=== PATIENT | male | born 1945 | race Caucasian/White ===

== ENCOUNTER → 2016-06-17 | Outpatient (CLI) | payer MEDICARE, OTHER ==
[~2016-06-17] VITALS: Ht 177.8 cm; Wt 69.9 kg
[~2016-06-17] MED LIST: BYSTOLIC10 MG PO; CYCLOSPORINE M100 MG PO; CYCLOSPORINE100 MG PO; ENSURE LIQUID237 ML PO; FILGRASTIM INJ; HYDROCODON-ACE1 EAC6 PO; IMBRUVICA140 MG PO; LEVAQUIN750 MG PO; LORTAB 7.5-3251 EACH PO; MEGACE SUSP40 MG/M1 PO; MEGACE400 MG/10 PO; OXYCODONE HCL10 MG PO; PREDNISONE 10 M10 MG GT; PREDNISONE10 MG PO; PROVENTIL HFA 61 INH INH; TESSALON PERLE100 MG PO
[2016-06-17 08:44] LABS: HEMOGLOBIN 7.7 gm/dl (14.0-17.5)
== END ==
LOC: OPSV 08:00
PROVIDERS: Internal Medicine Hematology & Oncology
DX: C83.08 Small cell B-cell lymphoma, lymph nodes of multiple sites (principal); Z88.0 Allergy status to penicillin; Z88.6 Allergy status to analgesic agent; Z88.8 Allergy status to other drugs, medicaments and biological substances
CPT/HCPCS: 36415; 36430; 85014; 85018; 86850; 86900; 86901; 86920; 86922; 96374; J1940; J7050; P9016; Q0163

== ENCOUNTER → 2016-06-24 | Outpatient (CLI) | payer MEDICARE, OTHER ==
[2016-06-24 11:15] LABS: HEMOGLOBIN 9.6 gm/dl (14.0-17.5); RED BLOOD COUNT 2.74 M/UL (4.20-5.50)
[2016-06-24 11:24] LABS: WHITE BLOOD COUNT 82.1 K/UL (4.5-11.0)
== END ==
LOC: CT 10:00
PROVIDERS: Internal Medicine Infectious Disease
DX: B44.1 Other pulmonary aspergillosis (principal); J90 Pleural effusion, not elsewhere classified; E44.0 Moderate protein-calorie malnutrition; D63.8 Anemia in other chronic diseases classified elsewhere; D72.823 Leukemoid reaction; R06.02 Shortness of breath; Z99.81 Dependence on supplemental oxygen; Z92.25 Personal history of immunosuppression therapy; J98.4 Other disorders of lung
CPT/HCPCS: 36415; 71250; 80053; 85025; 86140

== ENCOUNTER → 2016-06-30 | Outpatient (CLI) | payer MEDICARE, OTHER ==
[2016-06-30 15:20] LABS: HEMOGLOBIN 8.3 gm/dl (14.0-17.5); RED BLOOD COUNT 2.42 M/UL (4.20-5.50)
[2016-06-30 15:36] LABS: WHITE BLOOD COUNT 152.6 K/UL (4.5-11.0)
== END ==
LOC: LAB 14:20
PROVIDERS: Internal Medicine Hematology & Oncology
DX: D64.9 Anemia, unspecified (principal); D60.9 Acquired pure red cell aplasia, unspecified; C83.08 Small cell B-cell lymphoma, lymph nodes of multiple sites; Z88.0 Allergy status to penicillin; Z88.8 Allergy status to other drugs, medicaments and biological substances
CPT/HCPCS: 36415; 85025

== ENCOUNTER → 2016-07-07 | Outpatient (CLI) | payer MEDICARE, OTHER ==
[2016-07-07 12:31] LABS: HEMOGLOBIN 7.7 gm/dl (14.0-17.5); RED BLOOD COUNT 2.11 M/UL (4.20-5.50)
[2016-07-07 13:30] LABS: WHITE BLOOD COUNT 117.4 K/UL (4.5-11.0)
== END ==
LOC: LAB 10:59
PROVIDERS: Internal Medicine Hematology & Oncology
DX: C83.08 Small cell B-cell lymphoma, lymph nodes of multiple sites (principal); D60.9 Acquired pure red cell aplasia, unspecified; D64.9 Anemia, unspecified
CPT/HCPCS: 36415; 85025

== ENCOUNTER → 2016-08-05 | Outpatient (CLI) | payer MEDICARE, OTHER ==
[2016-08-05 11:51] LABS: HEMOGLOBIN 8.6 gm/dl (14.0-17.5); RED BLOOD COUNT 2.41 M/UL (4.20-5.50)
[2016-08-05 12:07] LABS: WHITE BLOOD COUNT 63.6 K/UL (4.5-11.0)
== END ==
LOC: LAB 10:53
PROVIDERS: Internal Medicine Hematology & Oncology
DX: C83.08 Small cell B-cell lymphoma, lymph nodes of multiple sites (principal); D64.9 Anemia, unspecified; D60.9 Acquired pure red cell aplasia, unspecified; J90 Pleural effusion, not elsewhere classified; R91.8 Other nonspecific abnormal finding of lung field; J18.9 Pneumonia, unspecified organism
CPT/HCPCS: 36415; 71020; 85025

== ENCOUNTER → 2016-09-16 | Outpatient (CLI) | payer MEDICARE, OTHER ==
[2016-09-16 15:45] LABS: RED BLOOD COUNT 2.72 M/UL (4.20-5.50); WHITE BLOOD COUNT 21.9 K/UL (4.5-11.0)
== END ==
LOC: LAB 14:42
PROVIDERS: Internal Medicine Hematology & Oncology
DX: C83.08 Small cell B-cell lymphoma, lymph nodes of multiple sites (principal); D60.9 Acquired pure red cell aplasia, unspecified; D64.9 Anemia, unspecified
CPT/HCPCS: 36415; 85025

== ENCOUNTER 2016-12-06 18:49 | Inpatient (IN) | payer MEDICARE, OTHER ==
[~2016-12-06] VITALS: Ht 177.8 cm; Wt 62.1 kg
[~2016-12-06 18:49] MED LIST changes: -OXYCODONE HCL10 MG PO
[2016-12-06 20:22] LABS: HEMOGLOBIN 8.8 gm/dl (14.0-17.5); RED BLOOD COUNT 2.89 M/UL (4.20-5.50)
[2016-12-07] MEDS ORDERED: OXYCODONE HCL10 MG PO (08:13)
[2016-12-08 04:43] LABS: BUN/CREATININE RATIO 48 (0-10)
[2016-12-08 04:48] LABS: HEMOGLOBIN 7.8 gm/dl (14.0-17.5); WHITE BLOOD COUNT 4.2 K/UL (4.5-11.0)
[2016-12-08 05:10] LABS: RED BLOOD COUNT 2.58 M/UL (4.20-5.50)
[2016-12-08 11:40] LABS: WHITE BLOOD COUNT 5.1 K/UL (4.5-11.0)
[2016-12-08 16:13] LABS: BUN/CREATININE RATIO 41 (0-10)
[2016-12-09 05:04] LABS: WHITE BLOOD COUNT 4.5 K/UL (4.5-11.0)
[2016-12-09 05:07] LABS: RED BLOOD COUNT 2.27 M/UL (4.20-5.50)
[2016-12-14 11:11] LABS: RED BLOOD COUNT 3.08 M/UL (4.20-5.50); WHITE BLOOD COUNT 4.1 K/UL (4.5-11.0)
[2016-12-14 11:12] LABS: HEMOGLOBIN 9.4 gm/dl (14.0-17.5)
== END 2016-12-15 12:22 | disposition expired | DRG 823 ==
LOC: ER1 18:49 → ZEROF 12-07 02:28 → M/S 12-07 02:28 → CCU 12-07 08:08 → M/S 12-10 14:42
PROVIDERS: Family Medicine; Internal Medicine; ADMIT Internal Medicine
PROC: 0B9G8ZX Drainage of Left Upper Lung Lobe, Via Natural or Artificial Opening Endoscopic, Diagnostic (ICD-10-PCS; 2016-12-08)
PROC: 0B9J8ZX Drainage of Left Lower Lung Lobe, Via Natural or Artificial Opening Endoscopic, Diagnostic (ICD-10-PCS; 2016-12-08)
PROC: 0BBG8ZX Excision of Left Upper Lung Lobe, Via Natural or Artificial Opening Endoscopic, Diagnostic (ICD-10-PCS; 2016-12-08)
PROC: 30233N1 Transfusion of Nonautologous Red Blood Cells into Peripheral Vein, Percutaneous Approach (ICD-10-PCS; principal; 2016-12-09)
DX: C83.00 Small cell B-cell lymphoma, unspecified site (principal); G93.40 Encephalopathy, unspecified; B44.0 Invasive pulmonary aspergillosis; J96.91 Respiratory failure, unspecified with hypoxia; D61.818 Other pancytopenia; N17.9 Acute kidney failure, unspecified; I48.91 Unspecified atrial fibrillation; Z51.5 Encounter for palliative care; Z66 Do not resuscitate; R91.8 Other nonspecific abnormal finding of lung field; D64.9 Anemia, unspecified; D69.6 Thrombocytopenia, unspecified; Z88.0 Allergy status to penicillin; K42.9 Umbilical hernia without obstruction or gangrene; I10 Essential (primary) hypertension; Z87.891 Personal history of nicotine dependence; E87.6 Hypokalemia
CPT/HCPCS: 36415; 70450; 71010; 71250; 80048; 80053; 80202; 82550; 82553; 83735; 83874; 84443; 84484; 85025; 85027; 86850; 86900; 86901; 86922; 87040; 87070; 87077; 87102; 87186; 87205; 87252; 87496; 93005; J0287; J0289; J0456; J1335; J2060; J2250; J2270; J3370; J3465; J3480; J7030; J7040; J7050; J7060; J7070; P9016